=== PATIENT | female | born 1930 | race Caucasian/White ===

== ENCOUNTER 2017-02-20 11:58 | Emergency (ER) | payer MEDICARE, OTHER ==
[~2017-02-20] VITALS: Ht 152.4 cm; Wt 61.7 kg
--- NOTE | 2017-02-20 12:01 | NUR ---
PT BIB [facility] C/O PAIN AND ITCHING TO L EYE X 2 DAYS, NO DISCHARGE. GOWNED PT . PLACED ON MONITOR. VSS. AWAITING MD ORDER
--- NOTE | 2017-02-20 12:13 | NUR ---
DR HANNA AT BEDSIDE FOR EVAL
[2017-02-20] MEDS ORDERED: TETRACAINE HCL/PF 0.5% UD 2 ML BOTTLE ONE (12:24)
[2017-02-20] MEDS ORDERED: FLUORESCEIN SODIUM OPHTH 1 EA STRIP ONE (12:24)
[2017-02-20] MEDS: TETRACAINE HCL 0.5% OPHTALMIC 15 ML BOTTLE OP ONE (12:32)
[2017-02-20 13:08] VITALS: BP 97/60
--- NOTE | 2017-02-20 13:34 | NUR ---
CALLED [facility] FOR TRANSPORTATION ETA 30-45 MIN.
--- NOTE | 2017-02-20 13:53 | NUR ---
PT TRANSFER TO [facility]. TRANSFER VIA [facility].
== END 2017-02-20 13:58 | disposition short-term general hospital (02) ==
LOC: ER 12:00
DX: H57.12 Ocular pain, left eye (principal); E03.9 Hypothyroidism, unspecified; F03.90 Unspecified dementia, unspecified severity, without behavioral disturbance, psychotic disturbance, mood disturbance, and anxiety; F29 Unspecified psychosis not due to a substance or known physiological condition; I10 Essential (primary) hypertension; K21.9 Gastro-esophageal reflux disease without esophagitis; F31.9 Bipolar disorder, unspecified; M16.0 Bilateral primary osteoarthritis of hip
CPT/HCPCS: 99285; A4606; Z7610